=== PATIENT | male | born 1990 | race Caucasian/White ===

== ENCOUNTER 2019-06-06 21:10 | Emergency (ER) | payer OTHER ==
[2019-06-07] MEDS: DIPHTH/TET/ACEL PERTUSS (ADULT) 0.5 ML VIAL IM* (01:54)
== END 2019-06-07 02:27 | disposition home or self-care (01) ==
LOC: FTE 21:10
DX: S51.831A Puncture wound without foreign body of right forearm, initial encounter (principal); F17.210 Nicotine dependence, cigarettes, uncomplicated; L03.113 Cellulitis of right upper limb; F11.10 Opioid abuse, uncomplicated; X58.XXXA Exposure to other specified factors, initial encounter; Y92.9 Unspecified place or not applicable; Z23 Encounter for immunization
CPT/HCPCS: 73090; 73090-RT; 90471; 90715; 93971; 99284-25